=== PATIENT | female | born 1980 | race Hispanic/Latino ===

== ENCOUNTER 2017-11-13 21:13 | Emergency (ER) | payer SELFPAY | END 2017-11-13 21:57 | disposition home or self-care (01) | LOC: EDH 21:13 | DX: S09.8XXA Other specified injuries of head, initial encounter (principal); W22.8XXA Striking against or struck by other objects, initial encounter; Y93.89 Activity, other specified; Y92.89 Other specified places as the place of occurrence of the external cause; Y99.8 Other external cause status ==